=== PATIENT | male | born 1945 | race Asian ===

== ENCOUNTER 2023-09-03 18:35 | Inpatient (IN) | payer MEDICARE, OTHER ==
[~2023-09-03] VITALS: Ht 172.7 cm; Wt 77.1 kg
[2023-09-03 19:11] LABS: BASOPHILS % (AUTO) 0.7 % (0.0-2.0); EOSINOPHILS # (AUTO) 0.1 K/uL (0.0-0.7); EOSINOPHILS % (AUTO) 1.2 % (0.0-7.0); HEMOGLOBIN 12.6 g/dL (12.5-16.3); LYMPHOCYTES # (AUTO) 1.2 K/uL (0.8-4.8); LYMPHOCYTES % (AUTO) 22.9 % (20.5-51.5); MEAN CORPUSCULAR HEMOGLOBIN 31.8 uug (23.8-33.4); MEAN CORPUSCULAR HGB CONC 34 g/dL (32.5-36.3); MEAN CORPUSCULAR VOLUME 93.4 fL (73.0-96.2); MONOCYTES # (AUTO) 0.6 K/uL (0.1-1.30); MONOCYTES % (AUTO) 11.3 % (0.0-11.0); NEUTROPHILS # (AUTO) 3.2 K/uL (1.8-8.9); NEUTROPHILS % (AUTO) 63.9 % (38.5-71.5); PLATELET COUNT (AUTO) 174 K/uL (152-348); RED BLOOD CELL COUNT(AUTO) 3.96 MIL/uL (4.06-5.63); RED CELL DISTRIBUTION WIDTH 13.4 % (12.1-16.2); WHITE BLOOD COUNT (AUTO) 5.1 K/uL (3.6-10.2)
[2023-09-03 19:28] LABS: CALCIUM 8.7 mg/dL (8.5-10.1); CARBON DIOXIDE 27 mmol/L (21-32); CHLORIDE 105 mmol/L (98-107); CREATININE 1.3 mg/dL (0.6-1.3); GLUCOSE 156 mg/dL (74-106); SODIUM SERUM 141 mmol/L (136-145); UREA NITROGEN, BLOOD 30 mg/dL (7-18)
[2023-09-03 19:30] LABS: DIFFERENTIAL COMMENT 1
[2023-09-03 19:31] LABS: ETHANOL < 3 MG/DL (0-10)
[2023-09-03 19:39] LABS: THYROID STIMULATING HORMONE 1.276 mIU/mL (0.358-3.740)
[2023-09-03] MEDS ORDERED: MEMA10TA PO (19:52)
[2023-09-03] MEDS ORDERED: ACET325T53 PO (19:52)
[2023-09-03] MEDS ORDERED: METF-440 PO (19:52)
[2023-09-03] MEDS ORDERED: THIA100T74 PO (19:52)
[2023-09-03] MEDS ORDERED: BISA10SU61 RC (19:52)
[2023-09-03] MEDS ORDERED: LATA7.5D EACHEYE (19:52)
[2023-09-03] MEDS ORDERED: PRAM0.253 PO (19:52)
[2023-09-03] MEDS ORDERED: DONE10TA44 PO (19:52)
[2023-09-03] MEDS ORDERED: NA P133E RC (19:52)
[2023-09-03] MEDS ORDERED: GABA300C PO (19:52)
[2023-09-03] MEDS ORDERED: LORA0.5T48 PO (19:52)
[2023-09-03] MEDS ORDERED: MAGN400O6 PO (19:52)
[2023-09-03] MEDS ORDERED: QUET50TA PO (19:52)
[2023-09-03] MEDS ORDERED: ESCI5TAB PO (19:52)
[2023-09-03] MEDS ORDERED: GLYB5TAB7 PO (19:52)
[2023-09-03] MEDS ORDERED: DOCU-141 PO (19:52)
[2023-09-03] MEDS ORDERED: LISI-782 PO (19:52)
[2023-09-03 19:53] LABS: ACETAMINOPHEN 3.9 ug/mL (10-30); ALANINE AMINOTRANSFERASE 21 U/L (16-63); ALBUMIN 3.6 g/dL (3.4-5.0); ALKALINE PHOSPHATASE 101 U/L (50-136); ASPARTATE AMINOTRANSFERASE 12 U/L (15-37); BILIRUBIN,DIRECT 0.1 mg/dL (0.0-0.2); BILIRUBIN,TOTAL 0.3 mg/dL (0.2-1.0); TOTAL PROTEIN, SERUM 6.6 g/dL (6.4-8.2)
[2023-09-03 20:37] LABS: AMMONIA 11 umol/L (11-32)
[2023-09-03 20:46] LABS: LACTIC ACID 2.7 mmol/L (0.4-2.0)
[2023-09-03 21:50] LABS: *BILIRUBIN,URIN NEGATIVE (NEGATIVE); *CLARITY,URINE CLEAR (CLEAR); *COLOR,URINE YELLOW (YELLOW); *KETONES,URINE NEGATIVE (NEGATIVE); *PROTEIN,URINE NEGATIVE (NEGATIVE); *UROBILINOGEN,URINE 0.2 E.U./dl (NORMAL); LEUKOCYTE ESTERASE ,URINE NEGATIVE (NEGATIVE); NITRITE, URINE NEGATIVE (NEGATIVE); PH,URINE 5.5 (5.0-8.0); UGLUCOSE TRACE (NEGATIVE)
[2023-09-03 21:53] LABS: *BLOOD, URINE NEGATIVE (NEGATIVE)
[2023-09-03 21:55] LABS: RBC,URINE 0-3 /HPF (0-3); WBC,URINE 0-3 /HPF (0-3)
[2023-09-03 22:03] LABS: *AMPHETAMINE, URINE NEGATIVE (NEGATIVE); *BARBITURATE, URINE NEGATIVE (NEGATIVE); *BENZODIAZEPINE, URINE NEGATIVE (NEGATIVE); *CANNABINOID, URINE NEGATIVE (NEGATIVE); *COCCAINE, URINE NEGATIVE (NEGATIVE); *OPIATE, URINE NEGATIVE (NEGATIVE); *PHENCYCLIDINE SCREEN,URINE NEGATIVE (NEGATIVE); FENTANYL, URINE NEGATIVE (NEGATIVE)
[2023-09-04] MEDS ORDERED: MAGNESIUM HYDROXIDE 30 ML LIQUID UDC PO PRN (01:45)
[2023-09-04] MEDS ORDERED: REMEDY ESSENTIAL ZINC PASTE 113 GM TP PRN (01:45)
[2023-09-04] MEDS ORDERED: ACETAMINOPHEN 325 MG TABLET PO PRN (01:45)
[2023-09-04] MEDS ORDERED: ONDANSETRON 4 MG/2 ML VIAL IV PRN (01:45)
[2023-09-04 02:00] VITALS: BP 135/46; TEMP 98; O2SAT 92
[2023-09-04] MEDS ORDERED: VANCOMYCIN IV 200 ML ONE (03:36)
[2023-09-04] MEDS ORDERED: PIPERACILLIN/TAZOBACTAM/D5W 50 ML IV ONE (03:37)
[2023-09-04] MEDS: PIPERACILLIN SODIUM/TAZOBACTAM 3.375 G in IV DEXTROSE 5% 50 ML IV ONE (04:01)
[2023-09-04] MEDS: VANCOMYCIN IV 1,000 MG in IV DEXTROSE 5% 250 ML IV ONE (04:01)
[2023-09-04] MEDS: BLOOD SUGAR DIAGNOSTIC 1 EACH STRIP VI SCH (06:51)
[2023-09-04 07:07] LABS: BASOPHILS % (AUTO) 0.7 % (0.0-2.0); EOSINOPHILS # (AUTO) 0.1 K/uL (0.0-0.7); EOSINOPHILS % (AUTO) 2.1 % (0.0-7.0); HEMATOCRIT 37.7 % (36.7-47.1); HEMOGLOBIN 12.9 g/dL (12.5-16.3); LYMPHOCYTES % (AUTO) 24.6 % (20.5-51.5); MEAN CORPUSCULAR HEMOGLOBIN 31.7 uug (23.8-33.4); MEAN CORPUSCULAR HGB CONC 34 g/dL (32.5-36.3); MEAN CORPUSCULAR VOLUME 92.4 fL (73.0-96.2); MONOCYTES # (AUTO) 0.4 K/uL (0.1-1.30); MONOCYTES % (AUTO) 10.7 % (0.0-11.0); NEUTROPHILS # (AUTO) 2.5 K/uL (1.8-8.9); NEUTROPHILS % (AUTO) 61.9 % (38.5-71.5); PLATELET COUNT (AUTO) 179 K/uL (152-348); RED BLOOD CELL COUNT(AUTO) 4.08 MIL/uL (4.06-5.63); RED CELL DISTRIBUTION WIDTH 13.2 % (12.1-16.2)
[2023-09-04 07:16] LABS: CALCIUM 8.1 mg/dL (8.5-10.1); CREATININE 1.1 mg/dL (0.6-1.3); POTASSIUM 3.6 mmol/L (3.5-5.1)
[2023-09-04 07:18] LABS: DIFFERENTIAL COMMENT 1
[2023-09-04 07:25] LABS: ALBUMIN 3.7 g/dL (3.4-5.0); BILIRUBIN,TOTAL 0.8 mg/dL (0.2-1.0); MAGNESIUM 2.1 mg/dL (1.8-2.4); TOTAL PROTEIN, SERUM 6.6 g/dL (6.4-8.2)
[2023-09-04 07:28] LABS: THYROID STIMULATING HORMONE 1.463 mIU/mL (0.358-3.740)
[2023-09-04] MEDS: INSULIN REGULAR, HUMAN 300 UNIT/3 ML VIAL SQ PRN (08:08)
[2023-09-04] MEDS: DOCUSATE SODIUM 100 MG CAPSULE PO SCH (08:44)
[2023-09-04] MEDS: QUETIAPINE FUMARATE 25 MG TABLET PO SCH (08:44)
[2023-09-04] MEDS: PRAMIPEXOLE 0.25 MG TABLET PO SCH (08:45)
[2023-09-04] MEDS: GABAPENTIN 300 MG CAPSULE PO SCH (08:45)
[2023-09-04] MEDS: MEMANTINE HCL 10 MG TABLET PO SCH (08:45)
[2023-09-04] MEDS: ESCITALOPRAM OXALATE 10 MG TABLET PO SCH (08:45)
[2023-09-04] MEDS: THIAMINE HCL 100 MG TABLET PO SCH (08:45)
[2023-09-04 12:00] VITALS: BP 118/62; TEMP 98; O2SAT 97
[2023-09-04] MEDS ORDERED: VANCOMYCIN IV 1,250 MG in IV DEXTROSE 5% 250 ML IV SCH (12:00)
[2023-09-04] MEDS: DEXTROSE 50% 50 ML DISP.SYRIN IV PRN (12:07)
[2023-09-04] MEDS ORDERED: PIPERACILLIN SODIUM/TAZOBACTAM 3.375 G in IV DEXTROSE 5% 50 ML IV SCH (14:00)
[2023-09-04 15:31] VITALS: BP 132/72; TEMP 98; O2SAT 98
[2023-09-04 20:33] VITALS: BP 96/56; TEMP 97.9; O2SAT 98
[2023-09-04] MEDS: DONEPEZIL 10 MG TABLET PO SCH (21:07)
[2023-09-05 05:11] VITALS: BP 133/79; TEMP 97.4; O2SAT 97
[2023-09-05 07:26] LABS: CALCIUM 8.4 mg/dL (8.5-10.1); CARBON DIOXIDE 29 mmol/L (21-32); CHLORIDE 104 mmol/L (98-107); GLUCOSE 145 mg/dL (74-106); POTASSIUM 3.8 mmol/L (3.5-5.1); SODIUM SERUM 139 mmol/L (136-145); UREA NITROGEN, BLOOD 17 mg/dL (7-18)
[2023-09-05 07:39] LABS: BASOPHILS % (AUTO) 0.5 % (0.0-2.0); EOSINOPHILS # (AUTO) 0.1 K/uL (0.0-0.7); EOSINOPHILS % (AUTO) 1.6 % (0.0-7.0); HEMATOCRIT 39.1 % (36.7-47.1); HEMOGLOBIN 13.5 g/dL (12.5-16.3); LYMPHOCYTES % (AUTO) 17.9 % (20.5-51.5); MEAN CORPUSCULAR HEMOGLOBIN 32.4 uug (23.8-33.4); MEAN CORPUSCULAR HGB CONC 35 g/dL (32.5-36.3); MEAN CORPUSCULAR VOLUME 93.5 fL (73.0-96.2); MONOCYTES # (AUTO) 0.6 K/uL (0.1-1.30); MONOCYTES % (AUTO) 11.3 % (0.0-11.0); NEUTROPHILS # (AUTO) 3.9 K/uL (1.8-8.9); NEUTROPHILS % (AUTO) 68.7 % (38.5-71.5); PLATELET COUNT (AUTO) 160 K/uL (152-348); RED BLOOD CELL COUNT(AUTO) 4.18 MIL/uL (4.06-5.63); RED CELL DISTRIBUTION WIDTH 13.4 % (12.1-16.2); WHITE BLOOD COUNT (AUTO) 5.7 K/uL (3.6-10.2)
[2023-09-05 12:00] VITALS: BP 113/70; TEMP 97.9; O2SAT 97
[2023-09-05 16:24] VITALS: BP 134/66; TEMP 97.4; O2SAT 98
== END 2023-09-05 17:52 | DRG 640 ==
LOC: ER 18:40 → TELE3 09-04 01:20 → MEDSURG3 09-04 03:15
PROVIDERS: ADMIT Nurse Practitioner Family; ATTEND Internal Medicine
DX: E86.0 Dehydration (principal); G93.41 Metabolic encephalopathy; F03.911 Unspecified dementia, unspecified severity, with agitation; F03.92 Unspecified dementia, unspecified severity, with psychotic disturbance; F03.93 Unspecified dementia, unspecified severity, with mood disturbance; F03.94 Unspecified dementia, unspecified severity, with anxiety; E87.20 Acidosis, unspecified; E11.42 Type 2 diabetes mellitus with diabetic polyneuropathy; M62.81 Muscle weakness (generalized); R79.89 Other specified abnormal findings of blood chemistry; R27.9 Unspecified lack of coordination; I95.9 Hypotension, unspecified; Z91.81 History of falling; Z79.899 Other long term (current) drug therapy; Z79.84 Long term (current) use of oral hypoglycemic drugs; Z66 Do not resuscitate; Z78.1 Physical restraint status
CPT/HCPCS: 36415; 70450; 71045; 83605; 83735; 84100; 84443; 84484; 85025; 85730; 87040; 93005; A6213; C1758; G0378; G0480; J1815; J2543; J3370; J3490; J7050

== ENCOUNTER 2023-09-05 18:15 | Inpatient (IN) | payer MEDICARE, OTHER ==
[~2023-09-05] VITALS: Ht 172.7 cm; Wt 77.1 kg
[~2023-09-05 18:15] MED LIST: ACET325T53 PO; BISA10SU61 RC; DOCU-141 PO; DONE10TA44 PO; ESCI5TAB PO; GABA300C PO; GLYB5TAB7 PO; LATA7.5D EACHEYE; LISI-782 PO; LORA0.5T48 PO; MAGN400O6 PO; MEMA10TA PO; METF-440 PO; NA P133E RC; PRAM0.253 PO; QUET50TA PO; THIA100T74 PO
[2023-09-05 19:42] VITALS: BP 117/68; TEMP 98; O2SAT 97
[2023-09-05] MEDS ORDERED: MAGNESIUM HYDROXIDE 30 ML LIQUID UDC PO PRN (20:30)
[2023-09-05] MEDS ORDERED: MAG HYDROX/AL HYDROX/SIMETH 30 ML LIQUID UDC PO PRN (20:30)
[2023-09-05] MEDS: BLOOD SUGAR DIAGNOSTIC 1 EACH STRIP VI ONE (20:52)
[2023-09-05] MEDS: LORAZEPAM 0.5 MG TABLET PO PRN (21:36)
[2023-09-05] MEDS: TEMAZEPAM 7.5 MG CAPSULE PO PRN (23:21)
[2023-09-06] MEDS ORDERED: DEXTROSE 50% 50 ML DISP.SYRIN IV PRN (04:45)
[2023-09-06] MEDS ORDERED: BISACODYL 10 MG SUPP.RECT RC PRN (05:00)
[2023-09-06] MEDS: BLOOD SUGAR DIAGNOSTIC 1 EACH STRIP VI SCH (07:02)
[2023-09-06 08:03] VITALS: BP 109/72; TEMP 98; O2SAT 99
[2023-09-06] MEDS: METFORMIN HCL 500 MG TABLET PO SCH (08:47)
[2023-09-06] MEDS: THIAMINE HCL 100 MG TABLET PO SCH (08:47)
[2023-09-06] MEDS: DOCUSATE SODIUM 100 MG CAPSULE PO SCH (08:47)
[2023-09-06] MEDS: GABAPENTIN 300 MG CAPSULE PO SCH (08:47)
[2023-09-06] MEDS: QUETIAPINE FUMARATE 25 MG TABLET PO SCH ×3 (11:45→21:09)
[2023-09-06] MEDS: INSULIN REGULAR, HUMAN 300 UNIT/3 ML VIAL SQ PRN (11:54)
[2023-09-06] MEDS: DIVALPROEX SPRINKLE 125 MG CAP.SPRINK PO SCH (14:09)
[2023-09-06 15:18] VITALS: BP 121/64; TEMP 98.2; O2SAT 99
[2023-09-06 20:03] VITALS: BP 101/71; TEMP 97.8; O2SAT 96
[2023-09-06] MEDS: PRAMIPEXOLE 0.25 MG TABLET PO SCH (21:09)
[2023-09-07 07:30] VITALS: BP 129/76; TEMP 98.2; O2SAT 98
[2023-09-07 16:03] VITALS: BP 124/65; TEMP 98.2; O2SAT 100
[2023-09-07 21:01] VITALS: BP 124/63; TEMP 98.1; O2SAT 96
[2023-09-08 07:39] VITALS: BP 119/67; TEMP 98; O2SAT 98
[2023-09-08 16:32] VITALS: BP 95/59; TEMP 98; O2SAT 97
[2023-09-08 20:00] VITALS: BP 100/65; TEMP 99.1; O2SAT 98
[2023-09-09 08:07] VITALS: BP 110/86; TEMP 98; O2SAT 96
[2023-09-09 16:48] VITALS: BP 143/65; TEMP 98; O2SAT 96
[2023-09-09 20:01] VITALS: BP 115/68; TEMP 98.2; O2SAT 96
[2023-09-10 07:38] VITALS: BP 108/70; TEMP 98; O2SAT 97
[2023-09-10 16:08] VITALS: BP 111/68; TEMP 98.2; O2SAT 97
[2023-09-10 20:02] VITALS: BP 107/62; TEMP 98.1; O2SAT 95
[2023-09-10] MEDS: LATANOPROST OPHT DROP 2.5 ML BOTTLE EACHEYE SCH (20:32)
[2023-09-11 07:47] VITALS: BP 111/72; TEMP 98.2; O2SAT 100
[2023-09-11 07:48] LABS: ALANINE AMINOTRANSFERASE 21 U/L (16-63); ALBUMIN 3.9 g/dL (3.4-5.0); ALKALINE PHOSPHATASE 86 U/L (50-136); ASPARTATE AMINOTRANSFERASE 12 U/L (15-37); BILIRUBIN,TOTAL 0.6 mg/dL (0.2-1.0); CALCIUM 8.5 mg/dL (8.5-10.1); CARBON DIOXIDE 27 mmol/L (21-32); CHLORIDE 103 mmol/L (98-107); GLUCOSE 140 mg/dL (74-106); SODIUM SERUM 140 mmol/L (136-145); TOTAL PROTEIN, SERUM 7.2 g/dL (6.4-8.2); UREA NITROGEN, BLOOD 17 mg/dL (7-18); VALPROIC ACID 33 ug/mL (50-100)
[2023-09-11] MEDS: ACETAMINOPHEN 325 MG TABLET PO PRN (12:00)
[2023-09-11 15:32] VITALS: BP 111/64; TEMP 98.2; O2SAT 98
[2023-09-11 20:30] VITALS: BP 105/62; TEMP 98.2; O2SAT 94
[2023-09-11] MEDS: DIVALPROEX SPRINKLE 125 MG CAP.SPRINK PO SCH (21:48)
[2023-09-12 07:49] VITALS: BP 120/65; TEMP 98; O2SAT 96
[2023-09-12 15:26] VITALS: BP 120/62; TEMP 98; O2SAT 96
[2023-09-12 20:00] VITALS: BP 125/62; TEMP 98; O2SAT 96
[2023-09-13 08:56] VITALS: BP 119/68; TEMP 97.6; O2SAT 96
[2023-09-13 15:23] VITALS: BP 123/58; TEMP 98; O2SAT 96
[2023-09-13 20:00] VITALS: BP 121/69; TEMP 97.8; O2SAT 96
[2023-09-14 07:30] VITALS: BP 153/94; TEMP 98; O2SAT 98
== END 2023-09-14 14:00 | DRG 885 ==
LOC: GPS 18:15
PROVIDERS: ADMIT Psychiatry & Neurology Psychosomatic Medicine; ATTEND Internal Medicine
DX: F29 Unspecified psychosis not due to a substance or known physiological condition (principal); F03.94 Unspecified dementia, unspecified severity, with anxiety; F03.93 Unspecified dementia, unspecified severity, with mood disturbance; F03.911 Unspecified dementia, unspecified severity, with agitation; E11.42 Type 2 diabetes mellitus with diabetic polyneuropathy; M62.81 Muscle weakness (generalized); Z91.81 History of falling; Z79.84 Long term (current) use of oral hypoglycemic drugs; Z79.899 Other long term (current) drug therapy
CPT/HCPCS: 36415; 80164; J1815